=== PATIENT | male | born 1990 | race Hispanic/Latino ===

== ENCOUNTER 2020-06-06 00:16 | Emergency (ER) | payer SELFPAY ==
[2020-06-06 01:41] VITALS: BP 111/61
== END 2020-06-06 01:52 | DRG 125 ==
LOC: ED 00:16
DX: S00.11XA Contusion of right eyelid and periocular area, initial encounter (principal); F10.129 Alcohol abuse with intoxication, unspecified; Y04.0XXA Assault by unarmed brawl or fight, initial encounter; Y92.009 Unspecified place in unspecified non-institutional (private) residence as the place of occurrence of the external cause